=== PATIENT | male | born 1970 | race Caucasian/White ===

== ENCOUNTER 2020-08-14 06:53 | Outpatient (CLI) | payer MEDICARE, MEDICAID ==
[2020-08-14 22:09] LABS: SARS-CoV-2 MS2 Positive; SARS-CoV-2 N Gene Negative; SARS-CoV-2 S Gene Negative; SARS-CoV-2 by NAA Not Detected (NotDetected); SARS-CoV-2 orf1ab Negative
== END 2020-08-14 06:54 | disposition home or self-care (01) ==
LOC: LABBT 06:53
PROVIDERS: ATTEND Internal Medicine Gastroenterology
DX: R10.9 Unspecified abdominal pain (principal); R63.4 Abnormal weight loss; K21.9 Gastro-esophageal reflux disease without esophagitis; F98.21 Rumination disorder of infancy and childhood; Z20.828 Contact with and (suspected) exposure to other viral communicable diseases
CPT/HCPCS: 87635; U0003

== ENCOUNTER 2020-08-18 06:02 | Day surgery (SDC) | payer MEDICARE, MEDICAID ==
[2020-08-17 13:04] VITALS: BMI 15.5
[2020-08-18] MEDS ORDERED: Ketamine 50 MG/ML (10ML VIAL) ONE (06:54)
[2020-08-18] MEDS ORDERED: Glycopyrrolate 0.2 MG/ML 5 ML SYRINGE ONE (10:07)
[2020-08-18] MEDS ORDERED: Ondansetron PF 4 MG/2 ML Vial ONE (10:07)
--- NOTE | 2020-08-18 10:40 | OP ---
DATE OF PROCEDURE: 08/18/2020 PREPROCEDURE DIAGNOSES: 1. Recurrent regurgitation worse than usual with weight loss. 2. Mild anemia with heme-negative stool. 3. 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 PROCEDURES PERFORMED: Esophagogastroduodenoscopy with polypectomy and incomplete colonoscopy. POSTPROCEDURE DIAGNOSES: 1. Tortuous esophagus with gastroesophageal junction about 30 cm inside the orifice. 2. No evidence of esophageal obstruction. 3. Poor motility of the esophagus. 4. Normal stomach except for a 5 mm polyp in the antrum, removed by snare polypectomy. 5. Normal duodenum. 6. Colonoscopy is tortuous and distended. We were not able to reach the cecum despite using an adult upper endoscope and a regular colonoscope, procedure was aborted. ANESTHESIA: TIVA. RECOMMENDATIONS: 1. Continue bowel regimen. 2. Continue PPI therapy. 3. Would try to avoid any other invasive treatments in this patient. Would not recommend further contrast studies or barium enema. Would discontinue all attempts at screening colonoscopies or colon cancer surveillance. DESCRIPTION OF PROCEDURE: After the patient was informed of the risks, benefits, and possible complications of endoscopy including perforation, bleeding, reaction to medication, and aspiration, informed consent was obtained from the patient's mother, who is in [place] over the phone. The patient was brought to endoscopy suite, where he was sedated. A bite block was placed in the incisural orifice. The endoscope was advanced through the esophagus, stomach, and into the second and third portions of the duodenum and slowly removed. The duodenum was normal. The stomach was notable for a small 3 to 5 mm gastric polyp in the antrum, which was removed by hot snare polypectomy. Retroflexed views were normal except for hiatal hernia. Esophagus was very tortuous. No evidence of obstruction or strictures. No evidence of achalasia. The scope was removed. The patient was turned to the room and a rectal examination was performed. The endoscope was advanced to the anal canal through the colon to about the transverse colon. We could not advance further due to the tortuosity and looping of the colon with the patient's body habitus. We could not get good safe pressure. We changed out for adult upper endoscope for more flexibility, but still could not reach the cecum. The scope was removed. The patient tolerated the procedure well. There were no complications. These findings were discussed with the patient's mother as well as recommendations. Job ID: [id number]
[2020-08-18] MEDS ORDERED: ePHEDrine 50 MG/ML VIAL ONE (10:45)
== END 2020-08-18 12:20 | disposition home or self-care (01) ==
LOC: SDC 06:02
PROVIDERS: ATTEND Internal Medicine Gastroenterology
PROC: 0DJ08ZZ Inspection of Upper Intestinal Tract, Via Natural or Artificial Opening Endoscopic (ICD-10-PCS; principal; 2020-08-18)
PROC: 0DJD8ZZ Inspection of Lower Intestinal Tract, Via Natural or Artificial Opening Endoscopic (ICD-10-PCS; 2020-08-18)
PROC: 0DB68ZZ Excision of Stomach, Via Natural or Artificial Opening Endoscopic (ICD-10-PCS; 2020-08-18)
DX: K31.7 Polyp of stomach and duodenum (principal); K21.9 Gastro-esophageal reflux disease without esophagitis; K29.70 Gastritis, unspecified, without bleeding; E78.5 Hyperlipidemia, unspecified; Z79.899 Other long term (current) drug therapy; Z88.6 Allergy status to analgesic agent; Z88.8 Allergy status to other drugs, medicaments and biological substances
CPT/HCPCS: 88305; 88312; J2405; J3490